=== PATIENT | male | born 1975 | race Caucasian/White ===

== ENCOUNTER 2016-08-13 18:12 | Emergency (ER) | payer OTHER ==
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
--- NOTE | 2016-08-13 20:27 | ED ORDER SUMMARY ---
..... Patient: SUKHDEEP DRUMMOND OrderSheet [facility] VisitID: [id number] [place] [address] 41y, M Registration Date/Time: 08/13/2016 ORDER SHEET Weight: 70.3 kg (stated) Allergies: No Known Drug Allergy GENERAL ORDERS: MEDICATION ORDERS: Augmentin PO 875 mg (NOW) (20:27 08/13/2016 Ivan P.A.-C) (20:39 EHassan R.N.) Tdap IM 0.5 mL (NOW, per protocol) (20:41 08/13/2016 DDean R.N. per protocol) (20:42 DDean R.N.) IV FLUIDS: ORDER SHEET NOTES: [Electronically signed by Destini Quinteros R.N. (21:07 08/13/2016)] [Electronically signed by Nisreen Garcia P.AJacklyn-Bahman (22:03 08/13/2016)] [Electronically locked/signed by Destini Quinteros R.N. (21:07 08/13/2016)]
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
--- NOTE | 2016-08-13 20:27 | ED ORDER SUMMARY ---
..... Patient: SUKHDEEP DRUMMOND OrderSheet [facility] VisitID: [id number] [place] [address] 41y, M Registration Date/Time: 08/13/2016 ORDER SHEET Weight: 70.3 kg (stated) Allergies: No Known Drug Allergy GENERAL ORDERS: MEDICATION ORDERS: Augmentin PO 875 mg (NOW) (20:27 08/13/2016 Ivan P.A.-C) (20:39 EHassan R.N.) Tdap IM 0.5 mL (NOW, per protocol) (20:41 08/13/2016 DDean R.N. per protocol) (20:42 DDean R.N.) IV FLUIDS: ORDER SHEET NOTES: [Electronically signed by Destini Quinteros R.N. (21:07 08/13/2016)] [Electronically signed by Nisreen Garcia P.AJacklyn-Bahman (22:03 08/13/2016)] [Electronically locked/signed by Destini Quinteros R.N. (21:07 08/13/2016)]
--- NOTE | 2016-08-13 22:04 | ED MED RECONCILIATION SUMMARY ---
Patient: SUKHDEEP DRUMMOND Medication Reconciliation Report [facility] VisitID: [id number] [place] [address] 41y, M Registration Date/Time: 08/13/2016 Weight: 70.3 kg Height/Length: 71 in. BMI: 21.6 ALLERGIES: No Known Drug Allergy The patient's Home Medications are listed below: Not obtained. The source(s) of the original Home Medication information: Not obtained. The following Medications were given to the patient in the Emergency Department: Augmentin [PO] PO 875 mg, administered: 08/13/2016 8:24:00 PM TDAP [IM] IM 0.5 mL, administered: 08/13/2016 8:32:00 PM The following Medications were prescribed to the patient: Take OTC medications according to label instructions. Available over the counter. -- Nisreen Garcia, P.A.-C Acetaminophen (available over the counter): take according to label instructions. -- Nisreen Garcia P.A.-Bahman Augmentin 875 mg: take 1 tablet orally every 12 hours for 7 days. Dispense fourteen (14). No refills. Substitution is permissible. -- Nisreen Garcia P.A.-C
--- NOTE | 2016-08-13 22:04 | ED MED RECONCILIATION SUMMARY ---
Patient: SUKHDEEP DRUMMOND Medication Reconciliation Report [facility] VisitID: [id number] [place] [address] 41y, M Registration Date/Time: 08/13/2016 Weight: 70.3 kg Height/Length: 71 in. BMI: 21.6 ALLERGIES: No Known Drug Allergy The patient's Home Medications are listed below: Not obtained. The source(s) of the original Home Medication information: Not obtained. The following Medications were given to the patient in the Emergency Department: Augmentin [PO] PO 875 mg, administered: 08/13/2016 8:24:00 PM TDAP [IM] IM 0.5 mL, administered: 08/13/2016 8:32:00 PM The following Medications were prescribed to the patient: Take OTC medications according to label instructions. Available over the counter. -- Nisreen Garcia, P.A.-C Acetaminophen (available over the counter): take according to label instructions. -- Nisreen Garcia P.A.-Bahman Augmentin 875 mg: take 1 tablet orally every 12 hours for 7 days. Dispense fourteen (14). No refills. Substitution is permissible. -- Nisreen Garcia P.A.-C
--- NOTE | 2016-08-13 22:04 | ED MAR SUMMARY ---
..... Medication Administration Record [facility] [address] [place] [address] Patient: SUKHDEEP DRUMMOND Visit ID: [id number] 41y, M Weight: 70.3 kg Height/Length: 71 in BMI: 21.6 ALLERGIES: No Known Drug Allergy Given 20:24 08/13/2016 Destini Quinteros RJacklynNJacklyn Medication Administered: AUGMENTIN [PO] (AMOXICILLIN-POT CLAVULANATE), Dose: 875 mg Tablets PO. Medication Ordered: Augmentin PO 875 mg (NOW). Given 20:32 08/13/2016 Lolis Serrano RJaclkynN. Medication Administered: TDAP [IM], Dose: 0.5 mL IM. Medication Ordered: Tdap IM 0.5 mL (NOW, per protocol).
--- NOTE | 2016-08-13 22:04 | ED DISCHARGE INSTRUCTIONS ---
Patient: SUKHDEEP DRUMMOND General Instructions [facility] VisitID: [id number] [place] [address] 41y, M Registration Date/Time: 08/13/2016 Minor closed head injury. Deep laceration to upper lip. Complicated repair. INSTRUCTIONS Protect wound and keep wound area clean. (bacitracin). (salt water rinses ice [facility] or [facility] in 3 days for wound evaluation Address: [place] [address] ). Prescription Medications: Augmentin 875 mg: take 1 tablet orally every 12 hours for 7 days. Dispense fourteen (14). No refills. Substitution is permissible. OTC Medications: Take OTC medications according to label instructions. Available over the counter. Acetaminophen (available over the counter): take according to label instructions. ADDITIONAL INFORMATION Head Injury, No Wake-Up (Adult) You have had a head injury. It does not appear serious at this time. Symptoms of a more serious problem (concussion, bruising, or bleeding in the brain) may appear later. Therefore, watch for the WARNING SIGNS listed below. Home Care: Your healthcare provider will tell you whether its okay to drive. If so, you can drive yourself home. For the next day or so, be careful when driving or using heavy machinery until you are sure you have no delayed symptoms. During the next 24 hours someone must stay with you to check for the signs below. It is not necessary to stay awake or be awakened during the night. If you have swelling of the face or scalp, apply an ice pack (ice cubes in a plastic bag, wrapped in a towel) for 20 minutes. Do this every 1-2 hours until the swelling starts to go down. Do not use aspirin or ibuprofen (Motrin, Advil) after a head injury.You may use acetaminophen (Tylenol)to control pain, unless another pain medicine was prescribed. [NOTE: If you have chronic liver or kidney disease or ever had a stomach ulcer or GI bleeding, talk with your doctor before using these medicines.] For the next 24 hours: Do not take alcohol, sedatives or medicines that make you sleepy. Avoid strenuous activities. No lifting or straining. If you have had any symptoms of a concussion today (nausea, vomiting, dizziness, confusion, headache, memory loss or if you were knocked out), do not return to sports or any activity that could result in another head injury until all symptoms are gone and you have been cleared by your doctor. A second head injury before fully recovering from the first one can lead to serious brain injury. Follow Up with your doctor if symptoms are not improving after 24 hours, or as directed. [NOTE: A radiologist will review any X-rays or CT scans that were taken. We will notify you of any new findings that may affect your care.] Get Prompt Medical Attention if any of the followingWARNING SIGNS occur: Repeated vomiting Severe or worsening headache or dizziness Unusual drowsiness, or unable to awaken as usual Confusion or change in behavior or speech, memory loss, blurred vision Convulsion (seizure) Increasing scalp or face swelling Redness, warmth or pus from the swollen area Fluid drainage or bleeding from the nose or ears Laceration, Lip and Mouth Alaceration is a cut through the skin. When the cut is on the outside of the lip, it may be closed with stitches, surgical tape, or sometimes skin glue. Cuts inside the mouth may be sutured or left open, depending on the size. When stitches are used in the mouth, they are usually the kind that dissolve. Home care The following guidelines will help you care for your laceration at home: Eat soft foods to reduce pain when chewing. If the cut isinsideyour mouth, clean the wound by rinsing your mouth after each meal and at bedtime with a mixture of equal parts water and hydrogen peroxide (do not swallow!). Or, you can use a cotton swab to apply hydrogen peroxide directly onto the cut. Mouth wounds can be painful when eating. You may use a local, [id number] numbing solution for pain relief. If this is not available, you may use any numbing solution for teething babies. You may apply this directly to the sores with a cotton-tip swab or with your finger. If the cut is on theoutsideof the lip and sutures were used, you may shower as usual after the first 24 hours, but do not put your head under water until the sutures are removed. After removing the bandage, wash the area with soap and water. Use a wet cotton swab to loosen and remove any blood or crust that forms. After cleaning, keep the wound clean and dry. Talk with your doctor before applying any antibiotic ointment to the wound. You may apply an adhesive bandage or leave the wound open. If surgical tape was used, keep the area clean and dry. If it becomes wet, blot it dry with a towel. Talk with your doctor before applying any antibiotic ointment to the wound. The surgical tape closures will usually fall off after about 5 days. If skin glue was used, do not scratch, rub, or pick at the adhesive film. Do not place tape directly over the film.Do not apply liquid, ointment, or creams to the wound while the film is inplace.Do not clean the wound with peroxide and do not apply ointment. Avoid activities that cause heavy sweating until the film has fallen off. Protect the wound from prolonged exposure to sunlight or tanning lamps. You may shower as usual but do not soak the wound in water (no swimming). If you were given an antibiotic to prevent infection, do not stop taking this medication until you have finished the prescribed course or the doctor tells you to stop. The doctor may prescribe medications for pain. Follow the doctor's instructions for taking these medications.If you have chronic liver or kidney disease or ever had a stomach ulcer or GI bleeding, talk with your doctor before using these medicines. Follow-up care Follow up with your health care provider. Cuts in and around the mouth heal in about five days. However, even with proper treatment, a wound infection sometimes occurs. Therefore, check the wound daily for the warning signs listed below. Stitches should not be left in the face for more thanfivedays; otherwise, permanent stitch rogers may form. Unless told otherwise, you may remove surgical tape closures yourself afterfive days, if they have not already fallen off. Ifskin glue was used, the film will fall off by itself in 510 days. When to seek medical care Get prompt medical attention if any of these occur: Increasing pain in the wound Fever of 100.4F (38C) or higher, or as directed by your health care provider Redness, swelling, or pus coming from the wound If sutures come apart or fall out or if surgical tape falls off before three days If the wound edges reopen Bleeding not controlled by direct pressure Laceration: Will There Be A Scar? A laceration is a cut through one or more layers of the skin. The goal of emergency treatment is to clean the wound and close it to prevent infection, control bleeding and speed healing. Cuts heal because the body is able to repair the skin by "sealing" the edges together with collagen, a kind of "skin cement." How deep your cut is, its location on your body, your age and the way your skin heals all determine how visible the final scar will be. Some persons tend to heal with more scar tissue than others. This cut will probably heal similar to other cuts you have had in the past. What You Can Do: There are a few simple things that you can do to limit the amount of scar that forms: 1) PREVENT INFECTION: An infected wound makes a bigger scar. Keep the wound clean and dry. Change the dressing and apply any ointment/cream as directed. 2) MASSAGE THE WOUND:After the stitches have been removed: Use a moisturizing cream or lotion containing Aloe or Vitamin E Oil and gently massage the skin around the wound with your fingertips (wash your hands first!). Do this twice a day for the first two weeks, then once a day for a month. This will increase the flow of oxygen and blood to the wound and prevent excess scar tissue from building up. 3) AVOID SUN EXPOSURE: During the first six months, avoid sun exposure since the scar may reyna a much darker color than the skin around it. When in the sun, use SPF #50 (or greater) sun block on the scar, or cover the area with a hat or clothing. What To Expect: -- The cut will be sealed within 2 days and will be strong within 5-10 days. However, it will take at least SIX MONTHS for it to be fully healed. -- During the FIRST THREE MONTHS, you may notice the scar line getting more red or purple in color. The scar may become raised. The skin around the wound may feel thick and lumpy. -- During the FOURTH TO SIXTH MONTHS, this process begins to reverse. The red and purple color will fade, the scar line flattens, and the skin around it feels more normal. -- In most cases, the way the scar line looks after six months is the way it will remain, although there may be some continued improvement up to one year after the injury. Is There Anything Else That Can Be Done? If you do not like the way the scar looks after six months, a plastic surgeon may be able to perform a "scar revision." If you have any questions or problems as your wound heals, contact your doctor or this facility. We will be glad to assist you. You have been given the following additional information: HEAD INJURY, No Wake-Up (Adult) Laceration, Lip/Mouth Laceration, How To Minimize Scar (Electronically signed by Nisreen Garcia P.A.-C 08/13/2016 22:03)
--- NOTE | 2016-08-13 22:04 | ED MAR SUMMARY ---
..... Medication Administration Record [facility] [address] [place] [address] Patient: SUKHDEEP DRUMMOND Visit ID: [id number] 41y, M Weight: 70.3 kg Height/Length: 71 in BMI: 21.6 ALLERGIES: No Known Drug Allergy Given 20:24 08/13/2016 Destini Quinteros RJacklynNJacklyn Medication Administered: AUGMENTIN [PO] (AMOXICILLIN-POT CLAVULANATE), Dose: 875 mg Tablets PO. Medication Ordered: Augmentin PO 875 mg (NOW). Given 20:32 08/13/2016 Lolis Serrano RJacklynN. Medication Administered: TDAP [IM], Dose: 0.5 mL IM. Medication Ordered: Tdap IM 0.5 mL (NOW, per protocol).
== END 2016-08-13 20:40 | disposition home or self-care (01) ==
LOC: ED SRH 18:12
DX: S01.511A Laceration without foreign body of lip, initial encounter (principal); S09.90XA Unspecified injury of head, initial encounter; Y04.0XXA Assault by unarmed brawl or fight, initial encounter; Y92.89 Other specified places as the place of occurrence of the external cause; Y93.89 Activity, other specified; Y99.9 Unspecified external cause status; Z23 Encounter for immunization; F17.210 Nicotine dependence, cigarettes, uncomplicated